=== PATIENT | male | born 1955 | race Caucasian/White ===

== ENCOUNTER 2017-07-03 09:41 | Emergency (ER) | payer OTHER, MEDICAID ==
[2017-07-03 09:53] VITALS: BP 143/82; BMI 24.3
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
[2017-07-03] MEDS ORDERED: MORPHINE SULFATE INJ 4 MG IVP ONE (10:24)
[2017-07-03] MEDS ORDERED: ZOFRAN INJ 4 MG VIAL IVP ONE (10:24)
[2017-07-03] MEDS ORDERED: ZOFRAN INJ 4 MG VIAL IM ONE (10:38)
[2017-07-03] MEDS ORDERED: MORPHINE SULFATE INJ 4 MG IM ONE (10:38)
[2017-07-03] MEDS ORDERED: ZOFRAN INJ 4 MG VIAL ONE (10:42)
[2017-07-03] MEDS ORDERED: MORPHINE SULFATE INJ 4 MG ONE (10:43)
[2017-07-03 10:46] LABS: BASOPHILS # (AUTO) 0.1 X10^3/uL (0.0-0.1); BASOPHILS % (AUTO) 1.3 % (0.2-1.0); EOSINOPHILS # (AUTO) 0.2 x10^3/uL (0.0-0.2); EOSINOPHILS % (AUTO) 2.4 % (0.9-2.9); HEMATOCRIT 41.8 % (42.0-54.0); HEMOGLOBIN 14.4 g/dL (13.5-18.0); LYMPHOCYTES # (AUTO) 2.3 X10^3/uL (1.3-2.9); LYMPHOCYTES % (AUTO) 29.4 % (21.0-51.0); MEAN CORPUSCULAR HGB CONC 34.4 g/dL (33.0-35.0); MEAN CORPUSCULAR VOLUME 96.1 fL (80.0-100.0); MEAN PLATELET VOLUME 7.1 fL (7.4-11.0); MONOCYTES # (AUTO) 0.8 x10^3/uL (0.3-0.8); MONOCYTES % (AUTO) 10.8 % (0.0-13.0); NEUTROPHILS # (AUTO) 4.4 x10^3/uL (2.2-4.8); NEUTROPHILS % (AUTO) 56.1 % (42.0-75.0); PLATELET COUNT 487 X10^3/uL (150.0-450.0); RED BLOOD COUNT 4.35 X10^6/uL (4.7-6.0); RED CELL DISTRIBUTION WIDTH 15.1 % (11.6-16.5); WHITE BLOOD COUNT 7.8 X10^3/uL (3.6-10.0)
[2017-07-03 10:55] LABS: ALANINE AMINOTRANSFERASE 37 Units/L (12-78); ALBUMIN 3.4 g/dL (3.4-5.0); ALKALINE PHOSPHATASE 205 Units/L (46-116); ASPARTATE AMINO TRANSFERASE 37 Units/L (15-37); BLOOD UREA NITROGEN 10 mg/dL (7-18); CALCIUM 9.3 mg/dL (8.5-10.1); CHLORIDE 105 mmol/L (98-107); SODIUM 141 mmol/L (136-145); TOTAL PROTEIN 7.8 g/dL (6.4-8.2); eGFR BLACK RACES > 60 (>60); eGFR NON BLACK RACES > 60 (>60)
--- NOTE | 2017-07-03 11:31 | CT ---
HISTORY: Back pain recent surgery Study: CT thoracic spine without contrast Comparison: None Technique: Multiple axial images of the thoracic spine were obtained from the thoracic inlet to the t horacolumbar junction. Sagittal and coronal reconstructions were performed and reviewed. Findings: Alignment of the thoracic spine is maintained. No evidence for acute cortical disruption or subluxat ion identified. There postsurgical changes noted throughout the entire thoracic spine with streak art ifact the right screws. The epidural space is not well evaluated with CT and epidural abscess hematom a cannot be excluded on the basis of this examination. The large soft tissue fluid collections seen t o suggest an abscess. IMPRESSION: 1. Postoperative changes as above with no acute findings identified. Reported By:
[2017-07-03] MEDS ORDERED: BACITRACIN ZINC ONE (11:42)
== END 2017-07-03 12:07 | disposition home or self-care (01) ==
LOC: ER 10:09
DX: M54.6 Pain in thoracic spine (principal)
CPT/HCPCS: 36415; 72128; 80053; 85025; 96372; 99283; J2270; J2405

== ENCOUNTER → 2017-08-12 | Outpatient (CLI) | payer OTHER, MEDICAID ==
[~2017-08-12] MED LIST: LEXISCAN IV ONE
== END | disposition home or self-care (01) ==
LOC: RAD 08:47
PROVIDERS: ATTEND Internal Medicine Cardiovascular Disease
DX: R00.0 Tachycardia, unspecified (principal); I51.7 Cardiomegaly; I36.1 Nonrheumatic tricuspid (valve) insufficiency
CPT/HCPCS: 93306; A4222; J2785